=== PATIENT | male | born 1955 | race Caucasian/White ===

== ENCOUNTER 2019-11-03 12:11 | Inpatient (IN) ==
[2019-11-03 14:16] LABS: Calcium 9.1 MG/DL (8.5-10.1); Osmolality,Calculated 219.2 MOS/KG (273-304)
[2019-11-03] MEDS ORDERED: ALBUTEROL/IPRATROPIUM 3 ML NEB RESP TX STA (14:17)
[2019-11-03] MEDS ORDERED: ALBUTEROL 2.5 MG/3 ML NEB RESP TX PRN (14:27)
[2019-11-03] MEDS ORDERED: ONDANSETRON 4 MG/2 ML VIAL IV PRN (14:27)
[2019-11-03] MEDS ORDERED: SODIUM CHLORIDE 0.9% 1,000 ML IV SCH (14:30)
[2019-11-03] MEDS ORDERED: DEXTROSE 50% 25 GM/50 ML SYRINGE IV ONE (14:36)
[2019-11-03] MEDS ORDERED: LORazepam 2 MG/1 ML VIAL IV PRN ×2 (15:25)
[2019-11-03 15:55] LABS: Apearance,Urine CLEAR (Clear); Bilirubin,Urine Negative (Negative); Blood, Urine Negative (Negative); Glucose,Urine (UA) Negative (Negative); Hyaline Casts,Urine 8 /LPF (0-3); Ketones,Urine 5 mg/dL (Negative); Mucus,Urine Occasional /LPF (Occasional); Nitrite,Urine Negative (Negative); Protein,Urine 30 MG/DL; Squamous Epithelial Cell,Urine Occasional /HPF (0-10); Urine Color Yellow (Yellow); Urine Specific Gravity 1.019 (1.001-1.035); Urine Urobilinogen < 2.0 EU/DL (0.2-1.0)
[2019-11-03] MEDS ORDERED: SODIUM CHLORIDE 3% INJ 500 ML IV SCH (16:00)
[2019-11-03] MEDS ORDERED: DEXTROSE 50% 25 GM/50 ML VIAL IV STA (16:14)
[2019-11-03] MEDS: FOLIC ACID 1 MG TABLET PO SCH (17:03)
[2019-11-03] MEDS: THIAMINE 100 MG TABLET PO SCH (17:04)
[2019-11-03] MEDS: NICOTINE 21 MG/24 HR PATCH TRANSDERM PRN (17:04)
[2019-11-03] MEDS: MULTIVITAMIN (BEROCCA) TABLET PO SCH (17:04)
[2019-11-03] MEDS: hydrALAZINE 20 MG/1 ML VIAL IV PRN (17:09)
[2019-11-03 17:28] LABS: Calcium 8.8 MG/DL (8.5-10.1)
[2019-11-03] MEDS ORDERED: PNEUMOCOCCAL VACCINE (23 VALENT) 0.5 ML VIAL IM ONE (17:46)
[2019-11-03] MEDS: SODIUM CHLORIDE 0.9% 1,000 ML IV SCH (17:53)
[2019-11-03 20:56] LABS: Calcium 8.4 MG/DL (8.5-10.1); Osmolality,Calculated 226.6 MOS/KG (273-304)
[2019-11-04] MEDS ORDERED: DEXTROSE 10% 250 ML IV ONE (00:49)
[2019-11-04] MEDS ORDERED: DEXTROSE 10% 250 ML BAG IV PRN (00:53)
[2019-11-04 03:15] LABS: Calcium 8.1 MG/DL (8.5-10.1); Osmolality,Calculated 225.7 MOS/KG (273-304)
[2019-11-04] MEDS: SODIUM CHLORIDE 0.9% 1,000 ML IV SCH ×4 (03:52→17:17)
[2019-11-04 05:09] LABS: Basophils % 0.1 % (0.0-0.8); Eosinophils % 0.1 % (0.00-10.9); Hematocrit 34.6 VOL% (42.0-52.0); Hemoglobin 12.8 GM/DL (14.0-18.0); Immature Granulocytes % 0.7 %; Immature Granulocytes Absolute 0.08 #; Lymphocytes # 0.4 10*3/uL (1.4-4.0); Lymphocytes % 3.4 % (21.2-54.2); Mean Platelet Volume 9.9 FL (9.6-12.0); Monocytes % 8.3 % (1.7-12.7); Neutrophils % 87.4 % (38.7-73.9); Platelet Count 142 T/CUMM (130-400); Red Blood Count 3.76 MC/CUMM (3.8-5.5); Red Cell Distribution Width 12.3 % (9.3-17.3)
[2019-11-04 05:21] LABS: Lymphocytes 6 % (20-55); Segmented Neutrophils 87 % (50-85); Total Cells Counted 100
[2019-11-04 05:22] LABS: Hypochromasia Slight
[2019-11-04] MEDS: hydrALAZINE 20 MG/1 ML VIAL IV PRN (06:28)
[2019-11-04 08:53] LABS: Calcium 8.2 MG/DL (8.5-10.1); Osmolality,Calculated 225.6 MOS/KG (273-304)
[2019-11-04] MEDS: TAMSULOSIN 0.4 MG CAPSULE PO SCH (09:11)
[2019-11-04] MEDS: FOLIC ACID 1 MG TABLET PO SCH (09:11)
[2019-11-04] MEDS: PANTOPRAZOLE 40 MG TABLET PO SCH (09:11)
[2019-11-04] MEDS: THIAMINE 100 MG TABLET PO SCH (09:11)
[2019-11-04] MEDS: ASPIRIN EC 81 MG TABLET PO SCH (09:11)
[2019-11-04] MEDS: MULTIVITAMIN (BEROCCA) TABLET PO SCH (09:11)
[2019-11-04] MEDS: SODIUM CHLORIDE 1 GM TABLET PO SCH ×3 (09:41→21:24)
[2019-11-04] MEDS: amLODIPine 5 MG TABLET PO SCH (09:41)
[2019-11-04 15:01] LABS: Calcium 7.9 MG/DL (8.5-10.1); Osmolality,Calculated 229.3 MOS/KG (273-304)
[2019-11-04 20:35] LABS: Calcium 7.8 MG/DL (8.5-10.1)
[2019-11-04] MEDS: CEFDINIR 300 MG CAPSULE PO SCH (21:23)
[2019-11-04] MEDS: ACETAMINOPHEN 325 MG TABLET PO PRN (21:23)
[2019-11-05] MEDS: SODIUM CHLORIDE 0.9% 1,000 ML IV SCH ×4 (00:26→17:33)
[2019-11-05] MEDS: hydrALAZINE 20 MG/1 ML VIAL IV PRN (04:27)
[2019-11-05] MEDS: ALBUTEROL/IPRATROPIUM 3 ML NEB RESP TX PRN (04:30)
[2019-11-05 07:43] LABS: Basophils % 0.1 % (0.0-0.8); Hematocrit 36.2 VOL% (42.0-52.0); Hemoglobin 13.1 GM/DL (14.0-18.0); Immature Granulocytes % 0.8 %; Immature Granulocytes Absolute 0.11 #; Lymphocytes # 0.2 10*3/uL (1.4-4.0); Lymphocytes % 1.2 % (21.2-54.2); Mean Corpuscular HGB Conc 36.2 GM/DL (32-36); Mean Platelet Volume 9.7 FL (9.6-12.0); Monocytes % 6.1 % (1.7-12.7); Neutrophils % 91.8 % (38.7-73.9); Platelet Count 159 T/CUMM (130-400); Red Blood Count 3.81 MC/CUMM (3.8-5.5); Red Cell Distribution Width 12.8 % (9.3-17.3); White Blood Count 14.4 T/CUMM (4-12)
[2019-11-05 08:05] LABS: Hypochromasia 1+; Platelet Estimate Adequate; Segmented Neutrophils 95 % (50-85); Total Cells Counted 100
[2019-11-05 08:12] LABS: Osmolality,Calculated 236.6 MOS/KG (273-304)
[2019-11-05] MEDS: MULTIVITAMIN (BEROCCA) TABLET PO SCH (09:36)
[2019-11-05] MEDS: FOLIC ACID 1 MG TABLET PO SCH (09:36)
[2019-11-05] MEDS: ASPIRIN EC 81 MG TABLET PO SCH (09:36)
[2019-11-05] MEDS: amLODIPine 5 MG TABLET PO SCH (09:36)
[2019-11-05] MEDS: TAMSULOSIN 0.4 MG CAPSULE PO SCH (09:36)
[2019-11-05] MEDS: CEFDINIR 300 MG CAPSULE PO SCH ×2 (09:37→20:46)
[2019-11-05] MEDS: PANTOPRAZOLE 40 MG TABLET PO SCH (09:37)
[2019-11-05] MEDS: SODIUM CHLORIDE 1 GM TABLET PO SCH ×3 (09:37→20:46)
[2019-11-05] MEDS: THIAMINE 100 MG TABLET PO SCH (09:37)
[2019-11-05] MEDS: DESITIN 4OZ/NYSTATIN 15 GRAM MIXTURE PASTE TOP SCH ×2 (17:19→22:32)
[2019-11-06] MEDS: SODIUM CHLORIDE 0.9% 1,000 ML IV SCH ×8 (02:57→16:17)
[2019-11-06 06:22] LABS: Basophils % 0.1 % (0.0-0.8); Eosinophils % 0.2 % (0.00-10.9); Hematocrit 37.7 VOL% (42.0-52.0); Hemoglobin 13.6 GM/DL (14.0-18.0); Immature Granulocytes % 0.7 %; Lymphocytes # 0.4 10*3/uL (1.4-4.0); Lymphocytes % 2.5 % (21.2-54.2); Mean Corpuscular HGB Conc 36.1 GM/DL (32-36); Mean Corpuscular Volume 94.3 FL (87-102); Mean Platelet Volume 9.8 FL (9.6-12.0); Monocytes % 7.5 % (1.7-12.7); Platelet Count 181 T/CUMM (130-400); Red Cell Distribution Width 12.8 % (9.3-17.3); White Blood Count 14.3 T/CUMM (4-12)
[2019-11-06 06:48] LABS: Osmolality,Calculated 240.1 MOS/KG (273-304)
[2019-11-06] MEDS ORDERED: MAGNESIUM SULF RIDER 4 GM in PREMIX 1 EACH IV PRN (07:30)
[2019-11-06] MEDS ORDERED: MAGNESIUM SULF RIDER 2 GM in PREMIX 1 EACH IV PRN (07:30)
[2019-11-06 07:35] LABS: Acanthocytes Few; Lymphocytes 1 % (20-55); Polychromasia Few; Segmented Neutrophils 98 % (50-85); Total Cells Counted 100
[2019-11-06 07:36] LABS: Ovalocytes Few; Platelet Estimate Normal; Schistocytes Few
[2019-11-06] MEDS: POTASSIUM CHLORIDE RIDER 10 MEQ in PREMIX 1 EACH IV PRN ×6 (08:41→18:40)
[2019-11-06] MEDS: MULTIVITAMIN (BEROCCA) TABLET PO SCH (08:54)
[2019-11-06] MEDS: ASPIRIN EC 81 MG TABLET PO SCH (08:54)
[2019-11-06] MEDS: TAMSULOSIN 0.4 MG CAPSULE PO SCH (08:54)
[2019-11-06] MEDS: FOLIC ACID 1 MG TABLET PO SCH (08:55)
[2019-11-06] MEDS: amLODIPine 5 MG TABLET PO SCH (08:55)
[2019-11-06] MEDS: CEFDINIR 300 MG CAPSULE PO SCH ×2 (08:56→21:15)
[2019-11-06] MEDS: PANTOPRAZOLE 40 MG TABLET PO SCH (08:56)
[2019-11-06] MEDS: THIAMINE 100 MG TABLET PO SCH (08:56)
[2019-11-06] MEDS: SODIUM CHLORIDE 1 GM TABLET PO SCH ×3 (08:56→21:15)
[2019-11-06] MEDS: DESITIN 4OZ/NYSTATIN 15 GRAM MIXTURE PASTE TOP SCH ×2 (14:44→21:00)
[2019-11-06] MEDS: ACETAMINOPHEN 325 MG TABLET PO PRN (21:15)
[2019-11-07] MEDS: POTASSIUM CHLORIDE RIDER 10 MEQ in PREMIX 1 EACH IV PRN ×9 (01:32→11:48)
[2019-11-07] MEDS: SODIUM CHLORIDE 0.9% 1,000 ML IV SCH ×2 (03:41→13:45)
[2019-11-07 05:57] LABS: Basophils % 0.1 % (0.0-0.8); Eosinophils # 0.1 10*3/uL (0.0-0.87); Eosinophils % 0.4 % (0.00-10.9); Hematocrit 36.8 VOL% (42.0-52.0); Hemoglobin 13.4 GM/DL (14.0-18.0); Immature Granulocytes % 0.7 %; Lymphocytes # 0.3 10*3/uL (1.4-4.0); Lymphocytes % 1.9 % (21.2-54.2); Mean Corpuscular HGB Conc 36.4 GM/DL (32-36); Mean Corpuscular Volume 94.6 FL (87-102); Mean Platelet Volume 9.8 FL (9.6-12.0); Monocytes % 8.4 % (1.7-12.7); Neutrophils % 88.5 % (38.7-73.9); Platelet Count 167 T/CUMM (130-400); Red Blood Count 3.89 MC/CUMM (3.8-5.5); Red Cell Distribution Width 13.1 % (9.3-17.3); White Blood Count 13.9 T/CUMM (4-12)
[2019-11-07 06:26] LABS: Albumin 3.1 G/DL (3.4-5.0); Bilirubin,Total 2.4 MG/DL (0.2-1.0); Calcium 7.7 MG/DL (8.5-10.1); Osmolality,Calculated 245.8 MOS/KG (273-304); Total Protein 5.5 G/DL (6.4-8.3)
[2019-11-07 07:46] LABS: Band Neutrophils 1 % (0-10); Lymphocytes 2 % (20-55); Segmented Neutrophils 88 % (50-85); Total Cells Counted 100
[2019-11-07 07:48] LABS: Hypochromasia 1+; Microcytosis Slight
[2019-11-07 07:49] LABS: Platelet Estimate Adequate
[2019-11-07] MEDS: SODIUM CHLORIDE 1 GM TABLET PO SCH ×3 (09:10→21:55)
[2019-11-07] MEDS: ASPIRIN EC 81 MG TABLET PO SCH (09:11)
[2019-11-07] MEDS: MULTIVITAMIN (BEROCCA) TABLET PO SCH (09:11)
[2019-11-07] MEDS: FOLIC ACID 1 MG TABLET PO SCH (09:12)
[2019-11-07] MEDS: PANTOPRAZOLE 40 MG TABLET PO SCH (09:12)
[2019-11-07] MEDS: CEFDINIR 300 MG CAPSULE PO SCH ×2 (09:12→21:55)
[2019-11-07] MEDS: TAMSULOSIN 0.4 MG CAPSULE PO SCH (09:13)
[2019-11-07] MEDS: THIAMINE 100 MG TABLET PO SCH (09:13)
[2019-11-07] MEDS: DESITIN 4OZ/NYSTATIN 15 GRAM MIXTURE PASTE TOP SCH ×2 (09:29→21:56)
[2019-11-07] MEDS: amLODIPine 5 MG TABLET PO SCH (10:09)
[2019-11-07] MEDS: NICOTINE 21 MG/24 HR PATCH TRANSDERM PRN (12:53)
[2019-11-07] MEDS: ALBUTEROL/IPRATROPIUM 3 ML NEB RESP TX PRN (23:52)
[2019-11-08] MEDS: SODIUM CHLORIDE 0.9% 1,000 ML IV SCH ×5 (01:00→22:21)
[2019-11-08 06:10] LABS: Basophils % 0.1 % (0.0-0.8); Eosinophils # 0.1 10*3/uL (0.0-0.87); Eosinophils % 0.3 % (0.00-10.9); Hematocrit 33.6 VOL% (42.0-52.0); Hemoglobin 12.1 GM/DL (14.0-18.0); Immature Granulocytes % 1.1 %; Lymphocytes # 0.3 10*3/uL (1.4-4.0); Lymphocytes % 1.8 % (21.2-54.2); Mean Corpuscular Volume 97.4 FL (87-102); Mean Platelet Volume 9.9 FL (9.6-12.0); Monocytes % 6.9 % (1.7-12.7); Neutrophils % 89.8 % (38.7-73.9); Platelet Count 165 T/CUMM (130-400); Red Blood Count 3.45 MC/CUMM (3.8-5.5); Red Cell Distribution Width 13.5 % (9.3-17.3); White Blood Count 17.6 T/CUMM (4-12)
[2019-11-08 06:30] LABS: Albumin 2.7 G/DL (3.4-5.0); Bilirubin,Total 1.9 MG/DL (0.2-1.0); Osmolality,Calculated 250.4 MOS/KG (273-304); Total Protein 5.1 G/DL (6.4-8.3)
[2019-11-08 06:55] LABS: Eosinophils 1 % (0-10); Lymphocytes 2 % (20-55); Platelet Estimate Normal; Segmented Neutrophils 93 % (50-85); Total Cells Counted 100
[2019-11-08 06:56] LABS: Hypochromasia Slight
[2019-11-08] MEDS: POTASSIUM CHLORIDE RIDER 10 MEQ in PREMIX 1 EACH IV PRN ×3 (07:40→11:25)
[2019-11-08] MEDS: TAMSULOSIN 0.4 MG CAPSULE PO SCH (09:16)
[2019-11-08] MEDS: MULTIVITAMIN (BEROCCA) TABLET PO SCH (09:17)
[2019-11-08] MEDS: FOLIC ACID 1 MG TABLET PO SCH (09:17)
[2019-11-08] MEDS: ASPIRIN EC 81 MG TABLET PO SCH (09:17)
[2019-11-08] MEDS: PANTOPRAZOLE 40 MG TABLET PO SCH (09:18)
[2019-11-08] MEDS: amLODIPine 5 MG TABLET PO SCH (09:18)
[2019-11-08] MEDS: THIAMINE 100 MG TABLET PO SCH (09:18)
[2019-11-08] MEDS: SODIUM CHLORIDE 1 GM TABLET PO SCH ×3 (09:18→21:57)
[2019-11-08] MEDS: DESITIN 4OZ/NYSTATIN 15 GRAM MIXTURE PASTE TOP SCH ×2 (09:19→21:58)
[2019-11-08] MEDS: CEFDINIR 300 MG CAPSULE PO SCH ×2 (10:16→21:57)
[2019-11-08] MEDS: ALBUTEROL/IPRATROPIUM 3 ML NEB RESP TX PRN (21:05)
[2019-11-08] MEDS: ACETAMINOPHEN 325 MG TABLET PO PRN (21:58)
[2019-11-08] MEDS ORDERED: ALBUTEROL 2.5 MG/3 ML NEB RESP TX ONE (22:18)
[2019-11-08 22:56] LABS: ABG Base Excess -1.4 MMOL/L (-2.5-2.5); ABG HCO3 23.2 MMOL/L (20-26); ABG Oxygen Saturation 92.3 % (95-100); ABG PCO2 49.1 MM HG (35-48); ABG PO2 66.1 MM HG (80-95); ABG TCO2 22.6 MMOL/L (23-27)
[2019-11-08] MEDS ORDERED: ALBUTEROL 2.5 MG/3 ML NEB RESP TX PRN (23:07)
[2019-11-09] MEDS: methylPREDNISolone SOD SUC 40 MG/1 ML VIAL IV SCH ×3 (00:45→15:39)
[2019-11-09] MEDS: PIPERACILLIN/TAZOBACTAM 3,375 MG in SODIUM CHLORIDE 0.9% 100 ML IV SCH ×3 (00:46→15:37)
[2019-11-09] MEDS: ALBUTEROL/IPRATROPIUM 3 ML NEB RESP TX SCH ×6 (03:35→23:05)
[2019-11-09] MEDS: VANCOMYCIN INJ 1,000 MG in SODIUM CHLORIDE 0.9% 250 ML IV SCH ×2 (04:46→15:38)
[2019-11-09] MEDS: SODIUM CHLORIDE 0.9% 1,000 ML IV SCH (04:49)
[2019-11-09] MEDS: AZITHROMYCIN INJ 500 MG in SODIUM CHLORIDE 0.9% 250 ML IV SCH (06:00)
[2019-11-09 06:28] LABS: Basophils % 0.1 % (0.0-0.8); Hematocrit 37.2 VOL% (42.0-52.0); Hemoglobin 12.5 GM/DL (14.0-18.0); Immature Granulocytes % 1.1 %; Immature Granulocytes Absolute 0.18 #; Lymphocytes # 0.1 10*3/uL (1.4-4.0); Lymphocytes % 0.6 % (21.2-54.2); Mean Corpuscular HGB Conc 33.6 GM/DL (32-36); Mean Corpuscular Volume 101.6 FL (87-102); Mean Platelet Volume 9.8 FL (9.6-12.0); Monocytes % 3.5 % (1.7-12.7); Neutrophils % 94.7 % (38.7-73.9); Platelet Count 184 T/CUMM (130-400); Red Blood Count 3.66 MC/CUMM (3.8-5.5); Red Cell Distribution Width 13.8 % (9.3-17.3); White Blood Count 15.7 T/CUMM (4-12)
[2019-11-09 07:01] LABS: Albumin 2.5 G/DL (3.4-5.0); Bilirubin,Total 2.6 MG/DL (0.2-1.0); Calcium 8.6 MG/DL (8.5-10.1); Osmolality,Calculated 252.4 MOS/KG (273-304); Total Protein 5.6 G/DL (6.4-8.3)
[2019-11-09 07:39] LABS: Lymphocytes 2 % (20-55); Segmented Neutrophils 95 % (50-85); Total Cells Counted 100
[2019-11-09 07:40] LABS: Anisocytosis 1+; Burr Cells Few; Macrocytosis 2+; Platelet Estimate Normal; Target Cells Few
[2019-11-09 08:44] LABS: ABG Base Excess -1.1 MMOL/L (-2.5-2.5); ABG HCO3 23.4 MMOL/L (20-26); ABG Oxygen Saturation 94.3 % (95-100); ABG PCO2 41.2 MM HG (35-48); ABG PH 7.374 (7.35-7.45); ABG PO2 69.1 MM HG (80-95); ABG TCO2 21.2 MMOL/L (23-27)
[2019-11-09] MEDS: TAMSULOSIN 0.4 MG CAPSULE PO SCH (09:00)
[2019-11-09] MEDS: DESITIN 4OZ/NYSTATIN 15 GRAM MIXTURE PASTE TOP SCH ×2 (09:00→22:10)
[2019-11-09] MEDS: PANTOPRAZOLE 40 MG TABLET PO SCH (09:02)
[2019-11-09] MEDS: FOLIC ACID 1 MG TABLET PO SCH (09:02)
[2019-11-09] MEDS: THIAMINE 100 MG TABLET PO SCH (09:03)
[2019-11-09] MEDS: SODIUM CHLORIDE 1 GM TABLET PO SCH ×3 (09:03→22:10)
[2019-11-09] MEDS: MULTIVITAMIN (BEROCCA) TABLET PO SCH (09:04)
[2019-11-09] MEDS: ASPIRIN EC 81 MG TABLET PO SCH (09:04)
[2019-11-09] MEDS: amLODIPine 5 MG TABLET PO SCH (09:06)
[2019-11-09] MEDS ORDERED: FUROSEMIDE 40 MG/4 ML VIAL IV SCH (14:07)
[2019-11-09] MEDS: FUROSEMIDE 40 MG/4 ML VIAL IV SCH ×2 (14:49→16:25)
[2019-11-10] MEDS: PIPERACILLIN/TAZOBACTAM 3,375 MG in SODIUM CHLORIDE 0.9% 100 ML IV SCH ×2 (00:19→11:23)
[2019-11-10] MEDS: methylPREDNISolone SOD SUC 40 MG/1 ML VIAL IV SCH ×2 (00:20→11:23)
[2019-11-10] MEDS: ALBUTEROL/IPRATROPIUM 3 ML NEB RESP TX SCH ×5 (03:00→19:41)
[2019-11-10] MEDS: VANCOMYCIN INJ 1,000 MG in SODIUM CHLORIDE 0.9% 250 ML IV SCH (04:37)
[2019-11-10] MEDS: AZITHROMYCIN INJ 500 MG in SODIUM CHLORIDE 0.9% 250 ML IV SCH (06:12)
[2019-11-10 06:48] LABS: Calcium 8.6 MG/DL (8.5-10.1); Osmolality,Calculated 264.5 MOS/KG (273-304)
[2019-11-10] MEDS: POTASSIUM CHLORIDE RIDER 10 MEQ in PREMIX 1 EACH IV PRN ×5 (08:12→18:54)
[2019-11-10] MEDS ORDERED: predniSONE 20 MG TABLET PO SCH (09:00)
[2019-11-10] MEDS: MULTIVITAMIN (BEROCCA) TABLET PO SCH (09:52)
[2019-11-10] MEDS: SODIUM CHLORIDE 1 GM TABLET PO SCH (09:52)
[2019-11-10] MEDS: THIAMINE 100 MG TABLET PO SCH (09:52)
[2019-11-10] MEDS: amLODIPine 5 MG TABLET PO SCH (09:53)
[2019-11-10] MEDS: FOLIC ACID 1 MG TABLET PO SCH (09:53)
[2019-11-10] MEDS: ASPIRIN EC 81 MG TABLET PO SCH (09:53)
[2019-11-10] MEDS: TAMSULOSIN 0.4 MG CAPSULE PO SCH (09:53)
[2019-11-10] MEDS: PANTOPRAZOLE 40 MG TABLET PO SCH (09:54)
[2019-11-10] MEDS: FUROSEMIDE 40 MG/4 ML VIAL IV SCH ×2 (09:54→16:53)
[2019-11-10] MEDS: AMOXICILLIN/CLAV 875 MG TABLET PO SCH ×2 (10:45→16:53)
[2019-11-10] MEDS: DESITIN 4OZ/NYSTATIN 15 GRAM MIXTURE PASTE TOP SCH ×2 (10:46→20:44)
[2019-11-10] MEDS: POTASSIUM CHLORIDE 20 MEQ TABLET PO SCH ×2 (11:24→15:54)
[2019-11-10] MEDS: METOPROLOL TARTRATE 25 MG TABLET PO SCH ×2 (12:16→20:41)
[2019-11-10 12:34] LABS: INR 1.2; PT Patient Result 12.3 SECS (9.8-11.9)
[2019-11-10] MEDS ORDERED: ALBUMIN 25% 50 GM in PREMIX 1 EACH IV ONE (13:00)
[2019-11-10] MEDS ORDERED: MAGNESIUM SULF RIDER 4 GM in PREMIX 1 EACH IV ONE (15:24)
[2019-11-10 18:03] LABS: RBC,Pleural Fluid 244 T/CUMM
[2019-11-10 18:27] LABS: Calcium 8.6 MG/DL (8.5-10.1); Osmolality,Calculated 266.7 MOS/KG (273-304)
[2019-11-10 19:03] LABS: Lymphocytes,Pleural Fluid 19 %; Monocytes,Pleural Fluid 8 %; Neutrophils,Pleural Fluid 73 %
[2019-11-11] MEDS: ALBUTEROL/IPRATROPIUM 3 ML NEB RESP TX SCH ×7 (00:05→23:45)
[2019-11-11] MEDS: POTASSIUM CHLORIDE RIDER 10 MEQ in PREMIX 1 EACH IV PRN ×4 (01:17→05:52)
[2019-11-11 05:29] LABS: Basophils % 0.1 % (0.0-0.8); Hematocrit 33.3 VOL% (42.0-52.0); Hemoglobin 11.3 GM/DL (14.0-18.0); Immature Granulocytes % 1.8 %; Immature Granulocytes Absolute 0.26 #; Lymphocytes # 0.2 10*3/uL (1.4-4.0); Lymphocytes % 1.6 % (21.2-54.2); Mean Corpuscular HGB Conc 33.9 GM/DL (32-36); Mean Corpuscular Volume 99.4 FL (87-102); Mean Platelet Volume 9.3 FL (9.6-12.0); Monocytes % 6.3 % (1.7-12.7); Neutrophils % 90.2 % (38.7-73.9); Platelet Count 195 T/CUMM (130-400); Red Blood Count 3.35 MC/CUMM (3.8-5.5); White Blood Count 14.6 T/CUMM (4-12)
[2019-11-11 06:05] LABS: Calcium 8.7 MG/DL (8.5-10.1); Osmolality,Calculated 265.5 MOS/KG (273-304)
[2019-11-11 06:06] LABS: Lymphocytes 2 % (20-55); Segmented Neutrophils 96 % (50-85); Total Cells Counted 100
[2019-11-11 06:07] LABS: Hypochromasia 1+; Platelet Estimate Adequate
[2019-11-11] MEDS ORDERED: MAGNESIUM SULF RIDER 2 GM in PREMIX 1 EACH IV ONE (07:27)
[2019-11-11] MEDS: BUDESONIDE 0.5 MG/2 ML NEB RESP TX SCH ×2 (09:09→19:40)
[2019-11-11] MEDS: PANTOPRAZOLE 40 MG TABLET PO SCH (09:31)
[2019-11-11] MEDS: POTASSIUM CHLORIDE 20 MEQ TABLET PO SCH ×3 (09:31→15:45)
[2019-11-11] MEDS: MULTIVITAMIN (BEROCCA) TABLET PO SCH (09:32)
[2019-11-11] MEDS: AMOXICILLIN/CLAV 875 MG TABLET PO SCH ×2 (09:32→17:12)
[2019-11-11] MEDS: predniSONE 10 MG TABLET PO SCH (09:32)
[2019-11-11] MEDS: FOLIC ACID 1 MG TABLET PO SCH (09:32)
[2019-11-11] MEDS: ASPIRIN EC 81 MG TABLET PO SCH (09:32)
[2019-11-11] MEDS: THIAMINE 100 MG TABLET PO SCH (09:32)
[2019-11-11] MEDS: TAMSULOSIN 0.4 MG CAPSULE PO SCH (09:32)
[2019-11-11] MEDS: METOPROLOL TARTRATE 25 MG TABLET PO SCH ×2 (09:33→21:43)
[2019-11-11] MEDS: FUROSEMIDE 20 MG TABLET PO SCH ×2 (09:38→15:44)
[2019-11-11] MEDS: DESITIN 4OZ/NYSTATIN 15 GRAM MIXTURE PASTE TOP SCH ×2 (09:39→21:45)
[2019-11-11] MEDS: FUROSEMIDE 40 MG/4 ML VIAL IV SCH (12:01)
[2019-11-11] MEDS ORDERED: SPIRONOLACTONE 25 MG TABLET PO ONE (14:09)
[2019-11-11] MEDS ORDERED: PNEUMOCOCCAL VACCINE (23 VALENT) 0.5 ML VIAL IM ONE (18:00)
[2019-11-12] MEDS: ALBUTEROL/IPRATROPIUM 3 ML NEB RESP TX SCH ×3 (02:30→10:40)
[2019-11-12 05:42] LABS: Basophils % 0.1 % (0.0-0.8); Eosinophils # 0.2 10*3/uL (0.0-0.87); Eosinophils % 1.4 % (0.00-10.9); Hematocrit 35.3 VOL% (42.0-52.0); Immature Granulocytes % 0.9 %; Immature Granulocytes Absolute 0.11 #; Lymphocytes # 0.5 10*3/uL (1.4-4.0); Lymphocytes % 4.3 % (21.2-54.2); Mean Corpuscular Volume 99.4 FL (87-102); Mean Platelet Volume 9.6 FL (9.6-12.0); Monocytes % 8.7 % (1.7-12.7); Neutrophils % 84.6 % (38.7-73.9); Platelet Count 214 T/CUMM (130-400); Red Blood Count 3.55 MC/CUMM (3.8-5.5); White Blood Count 12.5 T/CUMM (4-12)
[2019-11-12 06:07] LABS: Eosinophils 1 % (0-10); Hypochromasia 1+; Lymphocytes 8 % (20-55); Platelet Estimate Adequate; Segmented Neutrophils 85 % (50-85); Total Cells Counted 100
[2019-11-12 06:10] LABS: Calcium 8.9 MG/DL (8.5-10.1); Osmolality,Calculated 264.7 MOS/KG (273-304)
[2019-11-12] MEDS: BUDESONIDE 0.5 MG/2 ML NEB RESP TX SCH (07:02)
[2019-11-12 07:48] VITALS: BP 119/90
[2019-11-12] MEDS ORDERED: SPIRONOLACTONE 25 MG TABLET PO SCH (09:00)
[2019-11-12] MEDS ORDERED: LOSARTAN 25 MG TABLET PO SCH (09:00)
[2019-11-12] MEDS: AMOXICILLIN/CLAV 875 MG TABLET PO SCH (09:24)
[2019-11-12] MEDS: PANTOPRAZOLE 40 MG TABLET PO SCH (09:24)
[2019-11-12] MEDS: predniSONE 10 MG TABLET PO SCH (09:25)
[2019-11-12] MEDS: THIAMINE 100 MG TABLET PO SCH (09:25)
[2019-11-12] MEDS: MULTIVITAMIN (BEROCCA) TABLET PO SCH (09:25)
[2019-11-12] MEDS: FUROSEMIDE 20 MG TABLET PO SCH (09:25)
[2019-11-12] MEDS: ASPIRIN EC 81 MG TABLET PO SCH (09:25)
[2019-11-12] MEDS: FOLIC ACID 1 MG TABLET PO SCH (09:25)
[2019-11-12] MEDS: DESITIN 4OZ/NYSTATIN 15 GRAM MIXTURE PASTE TOP SCH (09:26)
[2019-11-12] MEDS: METOPROLOL TARTRATE 25 MG TABLET PO SCH (09:26)
[2019-11-12] MEDS: TAMSULOSIN 0.4 MG CAPSULE PO SCH (09:26)
== END 2019-11-12 15:21 | DRG 643 ==
LOC: N.ED 12:11 → SUATTDRO 14:27 → N.EDINP 14:27 → N.ICU 16:23 → N.3E 11-04 15:14
PROVIDERS: ADMIT Internal Medicine; ATTEND Internal Medicine